=== PATIENT | male | born 1955 | race Caucasian/White ===

== ENCOUNTER 2016-10-05 05:37 | Day surgery (SDC) | payer OTHER ==
[2016-10-05] VITALS (22 sets, daily range): BP systolic 109–161; BP diastolic 66–87; PULSE 50–56; RESP 8–18; Ht 175.3 cm; Wt 91.8 kg
[~2016-10-05] VITALS: Ht 175.3 cm; Wt 91.8 kg
[2016-10-05] MEDS ORDERED: LIDOCAINE 1% (MDV) 20 ML INJ ONE (06:53)
[2016-10-05] MEDS ORDERED: VERAPAMIL 5 MG INJ ONE (06:53)
[2016-10-05] MEDS ORDERED: IODIXANOL LOCM 100 ML BTL ONE (06:53)
[2016-10-05] MEDS ORDERED: NITROGLYCERIN (IC) 100 MCG/ML INJ ONE ×2 (06:54→08:00)
[2016-10-05] MEDS ORDERED: MIDAZOLAM 1 MG/ML 2 ML INJ ONE (06:54)
[2016-10-05] MEDS ORDERED: FENTAnyl 50 MCG/ML VIAL ONE (06:54)
[2016-10-05] MEDS ORDERED: HEPARIN 1000 UNITS/ML 10 ML INJ ONE (06:54)
[2016-10-05] MEDS ORDERED: PRAV20TA2 PO (07:00)
[2016-10-05] MEDS ORDERED: ASPI81TA3 PO (07:00)
[2016-10-05] MEDS ORDERED: OMEG1CAP90 PO (07:00)
[2016-10-05] MEDS ORDERED: TERA1CAP36 PO (07:00)
[2016-10-05] MEDS ORDERED: LOSA25TA5 PO (07:00)
[2016-10-05] MEDS ORDERED: TEMA15CA PO (07:00)
[2016-10-05] MEDS ORDERED: CHOL10009 PO (07:00)
[2016-10-05] MEDS ORDERED: INSU100I12 SQ (07:00)
[2016-10-05] MEDS ORDERED: INSU100I27 SQ (07:00)
[2016-10-05] MEDS ORDERED: CINN500C9 PO (07:00)
[2016-10-05] MEDS ORDERED: OMEP40CA6 PO (07:00)
[2016-10-05] MEDS ORDERED: VITA600C2 PO (07:00)
[2016-10-05] MEDS ORDERED: CANA300T PO (07:00)
[2016-10-05 07:18] LABS: BASOPHILS % 0.8 % (0.0-2.0); EOSINOPHILS # 0.2 10^3/ul (0.0-0.5); EOSINOPHILS % 3.9 % (0.0-7.0); HEMATOCRIT 41.7 % (42.0-52.0); HEMOGLOBIN 14.6 g/dl (14.0-18.0); LYMPHOCYTES # 1.2 10^3/ul (0.8-2.9); LYMPHOCYTES % 24.2 % (15.0-51.0); MEAN CORPUSCULAR HEMOGLOBIN 30.9 pg (29.0-33.0); MEAN CORPUSCULAR VOLUME 88.2 fl (82.0-101.0); MEAN PLATELET VOLUME 11.1 fl (7.4-10.4); MONOCYTE # 0.4 10^3/ul (0.3-0.9); MONOCYTES % 7.9 % (0.0-11.0); NEUTROPHILS % 62.8 % (39.0-77.0); PLATELET COUNT 193 10^3/UL (140-415); RED BLOOD COUNT 4.73 10^6/ul (4.70-6.10); RED CELL DISTRIBUTION WIDTH 12.4 % (11.5-14.5); WHITE BLOOD COUNT 4.8 10^3/ul (4.8-10.8)
[2016-10-05 07:47] LABS: CALCIUM 9.3 mg/dl (8.4-10.2); CREATININE 0.96 mg/dl (0.61-1.24); POTASSIUM 4.4 mmol/L (3.5-5.1)
[2016-10-05 07:56] LABS: INR 0.99; PARTIAL THROMBOPLASTIN TIME 26.3 Sec (25.0-35.0); PROTIME 13.1 Sec (12.2-14.2)
[2016-10-05] MEDS ORDERED: SOD CHLORIDE 0.9% 1,000 ML IV SCH (09:06)
--- NOTE | 2016-10-05 09:09 | PDOCDIS ---
Discharge Instructions CONDITION Patient Condition: Good HOME CARE INSTRUCTIONS: Diet Instructions: Low Fat /Cholesterol ACTIVITY: Activity Restrictions: Slowly Increase Activity Avoid heavy lifting (x 3 days) Do not Drive (x 1 day) Willian Lawrence DO Oct 05, 2016 09:08
[2016-10-05] MEDS ORDERED: AL HYDROX/MG HYDROX/SIMETH 30 ML CUP PO PRN (09:30)
[2016-10-05] MEDS ORDERED: ONDANSETRON 4 MG INJ IV PRN (09:30)
[2016-10-05] MEDS ORDERED: ACETAMINOPHEN 325 MG TAB PO PRN (09:30)
--- NOTE | 2016-10-05 09:47 | OPR ---
Date/Time of Note Date/Time of Note DATE: 10/05/16 TIME: 09:46 Operative Report Procedure Date: Oct 05, 2016 Preoperative Diagnosis Shortness of breath and chest pain Abnormal stress test Postoperative Diagnosis Mild nonobstructive coronary artery disease Operation Performed Left heart catheterization Right and left coronary angiogram Interpretation and supervision of right and left coronary angiogram Left ventricular pressure measurements Right radial artery approach Conscious sedation Estimated Blood Loss: minimal Complications: None Pt Condition Post Procedure: stable Operative\Procedure Findings Hemodynamics LV 149/3 with EDP of 18 Aortic 148/80 Coronary anatomy Left main is a large caliber vessel with no significant disease Circumflex is a medium caliber vessel with mid 20% stenosis LAD is a medium caliber vessel with proximal 20% stenosis and mid 30% stenosis Circumflex is a medium caliber vessel and dominant with distal 10% diffuse stenosis Procedure Description Patient was brought to the [facility] after informed consent. Patient was prepped and draped as per protocol. Right radial access was obtained. A 5/6 Brazilian sheath was placed in the right radial artery. A 6 Brazilian [place] catheter was used to engage left main and RCA and angiogram's were performed as well as entering the left ventricle and pressure measurements were obtained as well as pullback. All catheters and wires removed. There was no immediate complications. Willian Lawrence DO Oct 05, 2016 09:47
== END 2016-10-05 14:30 | disposition home or self-care (01) ==
LOC: SDS 05:37
PROVIDERS: ATTEND Internal Medicine Cardiovascular Disease
DX: I25.10 Atherosclerotic heart disease of native coronary artery without angina pectoris (principal)
CPT/HCPCS: 80048; 82962; 85025; 85610; 85730; 93459; C1887; J1644; J2250; J3010; Q9967